=== PATIENT | male | born 1990 | race Caucasian/White ===

== ENCOUNTER 2017-12-10 17:30 | Outpatient (RCR) | payer OTHER, SELFPAY ==
--- NOTE | 2017-09-04 08:53 | HP.PTEVAL_ITS ---
Patient's Visit Information NURIS COONEY is a 27 year old M referred to Physical Therapy by DO VANNA Johns with a diagnosis of LOW BACK PAIN. Date of Evaluation: 09/04/17 Physical Therapist: Tushar Vitale PT, - Visit Plan Frequency: 1-2x /Week Duration: 4 Weeks Plan: posture ex's ,meckezie ex's ,manual therapy ,DLS,MODALITIES - Subjective Subjective: This 27 y/o male presents to physical therapy with low back pain with radicular symptoms. Intially,injuried low back with lateral shift in May 2016. Patient had MRI showed HNP.Patient had PT whiched helped. Most recently on hunting trip and camping noticed pain in lumbar pain. Location of symptoms right side with hamstrings symptoms. Denies parathesia/tingling. Coughing/ sneezing -. Symptoms worse with sitting,driving ,bending ,lifting. Symptoms affect sleeping right side. Symptoms better with walking. SOCIAL: . VOCATION: [place] [employer] - Pain Right Back Pain Intensity (Out of 10): 6 Pain Intensity Range: 10 Right Lower Extremity Pain Intensity (Out of 10): 6 Pain Intensity Range: 10 Comment: hams - Objective POSTURE: reduce lordosis. NEURO: denies pararthesia/tingling,reflexes L3-4,L4-5 ,L5-S1 1/3. GAIT: normal yimi reciprocal pattern. PALAPTION: unremarkable. SYMMTRIES: align. MMT: quads/hams 5/5,hip 4/5,ankle 5/5. LUMBAR ROM: flexion mod loss,extension min/mod loss,side glides min loss. FLEXABLITY: hams min tight - Special Tests L/S Slump test left side: Negative L/S Slump test right side: Negative L/S Left Straight Leg Raise: Negative L/S Right Straight Leg Raise: Negative Lumbar Standing: Flexion - Mechanical Response: No effect Lumbar Standing: Flexion - Symptoms During Testing: Increases Lumbar Standing: Flexion - Symptoms After Testing: Worse Lumbar Standing: Extension - Mechanical Response: No effect Lumbar Standing: Extension - Symptoms During Testing: Decreases Lumbar Standing: Extension - Symptoms After Testing: Better Lumbar Standing: Right Side Glides - Mechanical Response: No effect Lumbar Standing: Right Side [place] - Symptoms During Testing: Increases Lumbar Standing: Right Side [place] - Symptoms After Testing: No worse Lumbar Standing: Left Side [place] - Mechanical Response: No effect Lumbar Standing: Left Side [place] - Symptoms During Testing: No effect Lumbar Standing: Left Side [place] - Symptoms After Testing: No effect Lumbar Lying: Flexion - Mechanical Response: No effect Lumbar Lying: Flexion - Symptoms During Testing: Increases Lumbar Lying: Flexion - Symptoms After Testing: Worse Lumbar Lying: Extension - Mechanical Response: Increases motion Lumbar Lying: Extension - Symptoms During Testing: Increases Lumbar Lying: Extension - Symptoms After Testing: Better - Goals Goal 1:: Independant with HEP Goal Time Frame: 4-6 Weeks Goal 2:: Independant with posture/body mechanics Goal Time Frame: 4-6 Weeks Goal 3:: Decrease lumbar pain and radicular symptoms by 75% or greater to improve function. Goal Time Frame: 4-6 Weeks Goal 4:: Patient improve lumbar ROM to WNL for function of recovery Goal Time Frame: 4-6 Weeks Goal 5:: Patient bve d/c to prophalaxis Goal Time Frame: 4-6 Weeks - Rehabilitation Potential Physical Therapy Diagnosis: This patient has lumbar derrangemnt with HNP mechanical response with increase extension. blocked with extension,postive reponse with toñito ex's and posture correction. Rehabilitation Potential: Good - Anticipated Interventions Patient/Client Instruction: Educate patient on: Condition, Plan of Care For the Purpose of:: To decrease pain, To increase ROM, To improve nutrient delivery to tissue, To increase oxygenation perfusion, To improve muscle performance and motor function, To improve ability to perform ADL's, To increase tolerance to activity/condition/position, To improve ability of physical actions for home/community/work/leisure, To improve health of tissue, To decrease soft tissue restriction, To increase flexibility/ROM, To improve ability to perform tasks related to life management Therapeutic Exercise to Include: Strength training, Body mechanics, Postural training, Flexibilty training, Dynamic Lumbar Stabilization, Toñito Exercises For the Purpose of:: To decrease pain, To improve ability to perform ADL's, To increase tolerance to activity/condition/position, To improve performance and independence with ADL's, To improve ability of physical actions for home/ community/work/leisure, To improve health of tissue, To decrease soft tissue restriction, To increase flexibility/ROM, To improve ability to perform tasks related to life management Manual Therapy Techniques to Include: Mobilization For the Purpose of:: To decrease pain, To increase ROM, To improve nutrient delivery to tissue, To increase oxygenation perfusion, To improve health of tissue, To decrease soft tissue restriction, To increase flexibility/ROM TENS: Yes IF ES: Yes Cryotherapy (ice pack, ice massage): Yes Thermo therapy (hot pack): Yes Ultrasound (thermal/non thermal): Yes For the Purpose of:: To decrease pain, To improve nutrient delivery to tissue, To increase oxygenation perfusion, To improve health of tissue, To decrease soft tissue restriction Thank you for the opportunity to evaluate your patient. For Medicare and Medicare HMO plans, please review the plan of care and approve it. It will need to be FAXED BACK to us at [phone] for Medicare purposes. Please let me know if there are questions or concerns regarding this plan of care. Physician Signature: Date:
--- NOTE | 2018-02-22 15:50 | HP.PTDCNRP_ITS ---
HP - Discharge Summary (1) - Patient Information NURIS COONEY was seen in my office for initial evaluation on 09/04/17. The following Plan of Care was established for this patient: Initial Frequency: 1-2x /Week Initial Duration: 4 Weeks - Anticipated Interventions Patient/Client Instruction: Educate patient on: Condition, Plan of Care For the Purpose of:: To decrease pain, To increase ROM, To improve nutrient delivery to tissue, To increase oxygenation perfusion, To improve muscle performance and motor function, To improve ability to perform ADL's, To increase tolerance to activity/condition/position, To improve ability of physical actions for home/community/work/leisure, To improve health of tissue, To decrease soft tissue restriction, To increase flexibility/ROM, To improve ability to perform tasks related to life management Therapeutic Exercise to Include: Strength training, Body mechanics, Postural training, Flexibilty training, Dynamic Lumbar Stabilization, Margie Exercises For the Purpose of:: To decrease pain, To improve ability to perform ADL's, To increase tolerance to activity/condition/position, To improve performance and independence with ADL's, To improve ability of physical actions for home/ community/work/leisure, To improve health of tissue, To decrease soft tissue restriction, To increase flexibility/ROM, To improve ability to perform tasks related to life management Manual Therapy Techniques to Include: Mobilization For the Purpose of:: To decrease pain, To increase ROM, To improve nutrient delivery to tissue, To increase oxygenation perfusion, To improve health of tissue, To decrease soft tissue restriction, To increase flexibility/ROM TENS: Yes IF ES: Yes Cryotherapy (ice pack, ice massage): Yes Thermo therapy (hot pack): Yes Ultrasound (thermal/non thermal): Yes For the Purpose of:: To decrease pain, To improve nutrient delivery to tissue, To increase oxygenation perfusion, To improve health of tissue, To decrease soft tissue restriction This patient was last seen in our office 12/10/17. Pertinent comments regarding their Physical therapy will appear below: This patient seen for PT for lumbar radiculopathy . Patient did well with mckenzies and DLS PROGRAM .Patient has no pain,full lumbar ROM for function of recovey. Thus is d/c At this point I will be discontinuing this patient from physical therapy. I would be happy to see this patient again in the future if found appropriate by the physician. Thank you! Tushar Vitale, PT,
== END 2017-12-10 19:00 | disposition home or self-care (01) ==
LOC: PT 17:30
PROVIDERS: Family Provider Family Medicine; PCP Family Medicine; Visit Provider Orthopaedic Surgery
DX: M54.5 Low back pain (principal)
CPT/HCPCS: 97014; 97035; 97110; 97162; 97530; G0283

== ENCOUNTER 2018-04-19 14:00 | Outpatient (RCR) | payer OTHER, SELFPAY ==
--- NOTE | 2018-02-26 17:02 | HP.PTEVAL_ITS ---
Patient's Visit Information NURIS COONEY is a 27 year old M referred to Physical Therapy by TALA Lane with a diagnosis of LOW BACK PAIN UNSPECIFIED BACK PAIN WITH CHRONICITY SCIATICA. Date of Evaluation: 02/26/18 Physical Therapist: Tushar Vitale, PT, - Visit Plan Frequency: 1-2x /Week Duration: 4 Weeks Plan: PRORESSION OF SHANNON EX'S WITH PROGRESSION OF FORCES,DLS ,POSTIRAL EX'S, MODALITIES FOR PAIN CONRTOL - Subjective Subjective: This 27 y/o male presents to physical therapy with lumbar pain with radicular symptoms.Patient has h/o lumbar pain many years with h/o of HNP and pars fx 2008 playing football . Patient in past has had MRI . Patient has had shift deformity. Patient has h/o prior PT. Patient woke up yesterday morning waking up had alot of pain . Symtoms symtrically worse on left with radiculars symptoms occassionally lower legs.Symptoms worse with bending,lifting ,sitting. Symptoms some better with walking standing. Coughing/sneezing +.Bowel/bladder-. Patient has no parathesia/tingling. Patient low back pain affect QOL.. 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 SOCIAL : single - Pain Bilateral Back Pain Intensity (Out of 10): 7 Pain Intensity Range: 10 Bilateral Lower Extremity Pain Intensity (Out of 10): 0 Pain Intensity Range: 10 - Objective POSTURE: mild foward posture. GAIT: ambulates with reciprocal pattern slight mild foward posture. PALAPTION: tender L-S region. NEURO: denies parathesia/ tingling,reflexes 1/3 L3-4,L4-5,L5-S1. MMT: 5/5 quads/hams/hip/ankle 5/5. LUMBAR ROM: flexion mod loss ,extension mod loss,side glides min loss. FLEXABLITY : hams mod loss. SYMMTRIES: align - Special Tests L/S Slump test left side: Positive L/S Slump test right side: Positive L/S Left Straight Leg Raise: Positive L/S Right Straight Leg Raise: Negative Lumbar Standing: Flexion - Mechanical Response: No effect Lumbar Standing: Flexion - Symptoms During Testing: Increases Lumbar Standing: Flexion - Symptoms After Testing: Worse Lumbar Standing: Extension - Mechanical Response: No effect Lumbar Standing: Extension - Symptoms During Testing: Increases Lumbar Standing: Extension - Symptoms After Testing: No worse Lumbar Lying: Flexion - Mechanical Response: No effect Lumbar Lying: Flexion - Symptoms During Testing: Increases Lumbar Lying: Flexion - Symptoms After Testing: Worse Lumbar Lying: Extension - Mechanical Response: Increases motion Lumbar Lying: Extension - Symptoms During Testing: Decreases Lumbar Lying: Extension - Symptoms After Testing: Better - Goals Goal 1:: Independant with HEP Goal Time Frame: 4-6 Weeks Goal 2:: Independant with posture /body mechanics manage back pain. Goal Time Frame: 4-6 Weeks Goal 3:: Patient decrease lumbar pain by 75% or greater to improve function and job demands Goal Time Frame: 4-6 Weeks Goal 4:: Patient improve lumbar ROM for function of recovery Goal Time Frame: 4-6 Weeks Goal 5:: Patient to be d/c to prophalaxis Goal Time Frame: 4-6 Weeks Goal 6:: Patient to be able to perform ADL'S and job demands with no pain. Goal Time Frame: 4-6 Weeks - Rehabilitation Potential Physical Therapy Diagnosis: Patient has derrangemnent below knee posteral lateral due to h/o HNP with loss of ROM ,strength ,decrease gait,postural deficits thus benifit from skilled PPT. Rehabilitation Potential: Good - Anticipated Interventions Patient/Client Instruction: Educate patient on: Condition, Plan of Care For the Purpose of:: To decrease pain, To increase ROM, To improve nutrient delivery to tissue, To increase oxygenation perfusion, To improve muscle performance and motor function, To increase tolerance to activity/condition/ position, To improve ability of physical actions for home/community/work/leisure , To improve health of tissue, To decrease soft tissue restriction, To increase flexibility/ROM, To improve ability to perform tasks related to life management Therapeutic Exercise to Include: Strength training, Postural training, Flexibilty training, Dynamic Lumbar Stabilization, Shannon Exercises For the Purpose of:: To decrease pain, To increase oxygenation perfusion, To improve muscle performance and motor function, To increase tolerance to activity /condition/position, To improve ability of physical actions for home/community/ work/leisure, To improve health of tissue, To decrease soft tissue restriction, To increase flexibility/ROM, To improve ability to perform tasks related to life management Manual Therapy Techniques to Include: Mobilization Comment: LUMBAR For the Purpose of:: To decrease pain, To increase ROM, To improve muscle performance and motor function, To increase tolerance to activity/condition/ position, To improve ability of physical actions for home/community/work/leisure , To improve health of tissue, To decrease soft tissue restriction, To increase flexibility/ROM, To improve ability to perform tasks related to life management TENS: Yes IF ES: Yes Cryotherapy (ice pack, ice massage): Yes Thermo therapy (hot pack): Yes Ultrasound (thermal/non thermal): Yes For the Purpose of:: To decrease pain, To increase ROM, To improve health of tissue, To decrease soft tissue restriction Thank you for the opportunity to evaluate your patient. For Medicare and Medicare HMO plans, please review the plan of care and approve it. It will need to be FAXED BACK to us at [phone] for Medicare purposes. Please let me know if there are questions or concerns regarding this plan of care. Physician Signature: Date:
--- NOTE | 2018-07-31 14:07 | HP.PTDCNRP_ITS ---
HP - Discharge Summary (1) - Patient Information NURIS COONEY was seen in my office for initial evaluation on 02/26/18. The following Plan of Care was established for this patient: Initial Frequency: 1-2x /Week Initial Duration: 4 Weeks - Anticipated Interventions Patient/Client Instruction: Educate patient on: Condition, Plan of Care For the Purpose of:: To decrease pain, To increase ROM, To improve nutrient de livery to tissue, To increase oxygenation perfusion, To improve muscle performance and motor function, To increase tolerance to activity/condition/position, To improve ability of physical actions for home/community/work/leisure, To improve health of tissue, To decrease soft tissue restriction, To increase flexibility/ROM, To improve ability to perform tasks related to life management Therapeutic Exercise to Include: Strength training, Postural training, Flexibilty training, Dynamic Lumbar Stabilization, Effie Exercises For the Purpose of:: To decrease pain, To increase oxygenation perfusion, To improve muscle performance and motor function, To increase tolerance to activity/condition/position, To improve ability of physical actions for h ome/community/work/leisure, To improve health of tissue, To decrease soft tissue restriction, To increase flexibility/ROM, To improve ability to perform tasks related to life management Manual Therapy Techniques to Include: Mobilization Comment: LUMBAR For the Purpose of:: To decrease pain, To increase ROM, To improve muscle performance and motor function, To increase tolerance to activity/condition/position, To improve ability of physical actions for home/community/work/leisure, To improve health of tissue, To decrease soft tissue restriction, To increase flexibility/ROM, To improve ability to perform tasks related to life management TENS: Yes IF ES: Yes Cryotherapy (ice pack, ice massage): Yes Thermo therapy (hot pack): Yes Ultrasound (thermal/non thermal): Yes For the Purpose of:: To decrease pain, To increase ROM, To improve health of tissue, To decrease soft tissue restriction This patient was last seen in our office 04/19/18. Pertinent comments regarding their Physical therapy will appear below: This patient seen for PT for low back pain with PT tx focusing on Effie ex's,DLS,postural ex ,manual therapy and modalities,thus is d/c. At this point I will be discontinuing this patient from physical therapy. I would be happy to see this patient again in the future if found appropriate by the physician. Thank you! Tushar Vitale, PT, Cert MDT, OCS
== END 2018-04-19 19:00 | disposition home or self-care (01) ==
LOC: PT 14:00
PROVIDERS: Family Provider Family Medicine; PCP Family Medicine; Visit Provider Nurse Practitioner Family
DX: M54.5 Low back pain (principal)
CPT/HCPCS: 97014; 97035; 97110; 97162; G0283

== ENCOUNTER 2019-04-30 17:00 | Outpatient (RCR) | payer OTHER, SELFPAY ==
--- NOTE | 2019-03-31 19:57 | HP.PTEVAL_ITS ---
Patient's Visit Information NURIS COONEY is a 28 year old M referred to Physical Therapy by Carlos Kovacs III, MD with a diagnosis of RIGHT SCIATICA. Date of Evaluation: 03/31/19 Physical Therapist: Tushar Vitale, PT, Cert MDT, OCS - Visit Plan Frequency: 1-2x /Week Duration: 4 Weeks Plan: PT INTERVENTIONS SHANNON EX'S CORRECT SHIFT PROGRESS TO DLS ABD/BACK,. MODALTIES - Subjective Findings: This 28 y/o male presents to physical therapy with right sciatica . Patient had stiffness in lumbar then next next Sunday had shift deformity . Symptoms increase left buttuck hamstrind to calf . Aggraveting factors sol ding,sitting,driving lifting,standing and walking. Coughing/sneezing -. C/O parathesia/tingling left leg. Bowel/bladder-. Patient pain affects QOL and job demands. SOCIAL: . 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 GAIT: right lateral shift deformity antalgic gait. NEURO: c/o parathesia /tingling left leg ,reflexes L3-4,L4-5,L5-S1. MMT: quads/hams/hip 4/5,ankle 5/5. LUMBAR ROM: flexion mos loss,extension severe /mod loss,side glides mod rigght mod loss,left severe loss. SYMMTRIES:align - Special Tests L/S Slump test left side: Positive L/S Slump test right side: Negative L/S Left Straight Leg Raise: Positive L/S Right Straight Leg Raise: Negative Lumbar Standing: Flexion - Mechanical Response: No effect Lumbar Standing: Flexion - Symptoms During Testing: Increases Lumbar Standing: Flexion - Symptoms After Testing: Worse Lumbar Standing: Extension - Mechanical Response: No effect Lumbar Standing: Extension - Symptoms During Testing: Increases Lumbar Standing: Extension - Symptoms After Testing: Worse Lumbar Standing: Right Side Glides - Mechanical Response: No effect Lumbar Standing: Right Side [place] - Symptoms During Testing: Increases Lumbar Standing: Right Side [place] - Symptoms After Testing: Worse Lumbar Standing: Left Side [place] - Mechanical Response: No effect Lumbar Standing: Left Side [place] - Symptoms During Testing: Increases Lumbar Standing: Left Side [place] - Symptoms After Testing: Worse Lumbar Lying: Flexion - Mechanical Response: No effect Lumbar Lying: Flexion - Symptoms During Testing: Increases Lumbar Lying: Flexion - Symptoms After Testing: Worse Lumbar Lying: Extension - Symptoms During Testing: Peripheralizing Lumbar Lying: Extension - Symptoms After Testing: Worse Comments:: hips to right shit with REIL decrease symptoms - Goals Goal 1:: Independant with HEP Goal Time Frame: 4-6 Weeks Goal 2:: Independant with posture/body mechanics Goal Time Frame: 4-6 Weeks Goal 3:: Patient decrease lumbar pain and radicular symptoms by 70% > to improve function. Goal Time Frame: 4-6 Weeks Goal 4:: Patient to correct shift deformity to improve gait Goal Time Frame: 4-6 Weeks Goal 5:: Patient to improve lumbar ROM for function of recovery Goal Time Frame: 4-6 Weeks - Rehabilitation Potential Physical Therapy Diagnosis: This patient has right lateral shift deformity with symptoms radiating left leg has impaired with poor lumbar ROM ,shift deformity ,unable to return for flexion of recovery affects ADLS' and job demands . Rehabilitation Potential: Good - Anticipated Interventions Patient/Client Instruction: Educate patient on: Condition, Plan of Care For the Purpose of:: To decrease pain, To improve nutrient delivery to tissue, To improve muscle performance and motor function, To increase tolerance to activity/condition/position, To improve performance and independence with ADL's, To improve ability of physical actions for home/community/work/leisure, To improve health of tissue, To decrease soft tissue restriction, To increase flexibility/ROM, To improve ability to perform tasks related to life management Therapeutic Exercise to Include: Strength training, Postural training, Flexibilty training, Dynamic Lumbar Stabilization, Shannon Exercises For the Purpose of:: To decrease pain, To increase ROM, To improve muscle performance and motor function, To improve ability to perform ADL's, To increase tolerance to activity/condition/position, To improve ability of physical actions for home/community/work/leisure, To improve health of tissue, To decrease soft tissue restriction, To increase flexibility/ROM, To improve ability to perform tasks related to life management TENS: Yes IF ES: Yes Cryotherapy (ice pack, ice massage): Yes Thermo therapy (hot pack): Yes Ultrasound (thermal/non thermal): Yes For the Purpose of:: To decrease pain, To increase ROM, To improve nutrient delivery to tissue, To increase oxygenation perfusion, To increase tolerance to activity/condition/position, To improve ability of physical actions for home/community/work/leisure, To improve health of tissue, To decrease soft tissue restriction Thank you for the opportunity to evaluate your patient. For Medicare and Medicare HMO plans, please review the plan of care and approve it. It will need to be FAXED BACK to us at [phone] for Medicare purposes. For Medicare only, by signing this I certify the plan of care. Please let me know if there are questions or concerns regarding this plan of care. Physician Signature: Date:
--- NOTE | 2019-08-08 12:44 | HP.PT.NRP ---
HP - Discharge Summary (1) - Patient Information NURIS COONEY was seen in my office for initial evaluation on 03/31/19. The following Plan of Care was established for this patient: Initial Frequency: 1-2x /Week Initial Duration: 4 Weeks - Anticipated Interventions Patient/Client Instruction: Educate patient on: Condition, Plan of Care For the Purpose of:: To decrease pain, To improve nutrient delivery to tissue, To improve muscle performance and motor function, To increase tolerance to activity/condition/position, To improve performance and independence with ADL's, To improve ability of physical actions for home/community/work/leisure, To improve health of tissue, To decrease soft tissue restriction, To increase flexibility/ROM, To improve ability to perform tasks related to life management Therapeutic Exercise to Include: Strength training, Postural training, Flexibilty training, Dynamic Lumbar Stabilization, Toñito Exercises For the Purpose of:: To decrease pain, To increase ROM, To improve muscle performance and motor function, To improve ability to perform ADL's, To increase tolerance to activity/condition/position, To improve ability of physical actions for home/community/work/leisure, To improve health of tissue, To decrease soft tissue restriction, To increase flexibility/ROM, To improve ability to perform tasks related to life management TENS: Yes IF ES: Yes Cryotherapy (ice pack, ice massage): Yes Thermo therapy (hot pack): Yes Ultrasound (thermal/non thermal): Yes For the Purpose of:: To decrease pain, To increase ROM, To improve nutrient delivery to tissue, To increase oxygenation perfusion, To increase tolerance to activity/condition/position, To improve ability of physical actions for home/community/work/leisure, To improve health of tissue, To decrease soft tissue restriction This patient was last seen in our office 04/30/19. Pertinent comments regarding their Physical therapy will appear below: Patient seen for PT for lumbar radiculopathy for toñito ex's,DLS,moadlities , Patient doing well return to function of recovey ,no pain thus d/c. At this point I will be discontinuing this patient from physical therapy. I would be happy to see this patient again in the future if found appropriate by the physician. Thank you! Tushar Vitale, PT, Cert MDT, OCS
== END 2019-04-30 19:00 | disposition home or self-care (01) ==
LOC: PT 17:00
PROVIDERS: Family Provider Family Medicine; PCP Family Medicine; Referring Provider Family Medicine; Visit Provider Family Medicine
DX: M54.32 Sciatica, left side (principal)
CPT/HCPCS: 97014; 97035; 97110; 97161; G0283

== ENCOUNTER 2020-05-21 09:19 | Emergency (ER) | payer OTHER, SELFPAY ==
[2020-05-21 09:19] VITALS: BP 130/82; PULSE 87; RESP 17; TEMP 36.3; O2SAT 99; BMI 35.9
--- NOTE | 2020-05-21 09:48 | ED.VIS.INJ ---
History of Present Illness Chief Complaint: Other, Pain/Inj Informant: Patient Onset: Hours Mechanism/Context: Blunt Injury Quality of Pain: Dull Current Severity: Mild Maximum Severity: Moderate Worsened by: Initial trauma Associated Symptoms: Negative for: Inability to ambulate, Loss of consciousness, Amnesia Narrative: Patient is a 29-year-old male who presents after blunt facial trauma. He was working on a drive shaft. When he was removing the drive shaft the part broke and fell onto his face. He sustained a laceration upper lip right side. He does have facial swelling. He denies headache. Denies loss of conscious. He denies change in vision. He denies double vision. He denies malalignment of his teeth. Denies difficulty opening or closing his mouth. Denies neck pain. He denies paresthesia, anesthesia or motor weakness. He denies trauma to his teeth. Tetanus status is unknown. Tetanus Immunization: Unknown Prior similar symptoms: No Recent Illness/Hospitalization: No - Past Medical History (1) No significant past medical history Status: Acute Past Medical History - Allergies and Home Meds Allergies/Adverse Reactions: Allergies No Known Allergies Allergy (Verified 05/21/20 09:19) Primary Care Physician: Carlos Kovacs III, MD [Primary Care Provider] - Prior records reviewed: No Past Medical History: None Surgical History: noncontributory Lives: Alone Smoking Status: Current every day smoker Alcohol: Rare Drugs: None Review of Systems General: Denies: Chills, Fever, Malaise Eyes: Denies: Visual changes - bilaterally, Blurred Vision - bilaterally, Diplopia ENT: Denies: Bilateral ear pain, Rhinorrhea, Sore throat Gastrointestinal: Denies: Nausea, Vomiting Skin: Reports: Wounds. Denies: Rash Neurological: Denies: Headache, Weakness, Parasthesia, Numbness Hematologic: Denies: Easy bruising, Easy bleeding Allergy: Denies: Swelling of the mouth, Swelling of the tongue Physical Exam Vital Signs/Narrative: Vital Signs Temp Pulse Resp BP Pulse Ox 05/21/20 09:19 97.3 F L 87 17 130/82 H 99 Inital Vital Signs reviewed: Yes General: Well nourished, Well developed Head: Normocephalic, Trauma, Tenderness - Tenderness over the right side of the face. There is no pain to outpatient with tapping of the zygomatic arch, infraorbital rim or maxillary region. Eyes: Perrl, EOMI, - - No step-off infraorbital rim. There is no evidence of entrapment. There is no evidence of trauma to the upper eyelid. There is no subconjunctival hemorrhage.. Negative for: Pale conjunctiva, Scleral icterus ENT: TM's clear, No hemotympanum or drainage, No trauma, Nasal trauma - This [place] with no septal deviation hematoma.. Negative for: Hemotympanum, Otorrhea, Nasal septal hematoma Neck: Nontender Cardiovascular: Regular rate, Regular rhythm, No murmurs, Normal S1, Normal S2 Respiratory: No distress, CTA bilaterally Skin: Normal color, No rash, Trauma Neurological: Alert, Oriented x3, Cranial nerves II-XII grossly intact, Normal Strength, Normal Sensation, Normal Gait Psychological: Normal affect, Normal Mood Diagnostic/Tx/Re-eval - Medical Decision Making Patient has a laceration on the upper lip that involves the vermilion border. The lip was anesthetized by intraoral approach, infraorbital nerve block. 1% lidocaine, 4 cc Laceration No standard instances Length: 0.71 in Depth: Sub Q Shape: Involvement of vermilion border Prep: Sterile Conditions, Shjenny-Zak Laceration Repair: Nerve block - Infraorbital nerve block Irrigated (ml): 25 Number of Sutures/Michael: 7 Stitch Description: EthiKen ortiz, 6-0 Comment: First stitch was placed through the vermilion border. ED Disposition - Plan for ED Patient: Disposition: Home or Assisted Living Diagnosis: Lip laceration Instructions: ED Scar Tips to Minimize, ED Laceration Facial Sutr Tape Referrals: Carlos Kovacs III, MD [Primary Care Provider] - 5 Days for suture removal
[2020-05-21] MEDS: Diphth,Pertuss(Acell),Tet Vac 0.5 ML Vial IM (10:58)
== END 2020-05-21 12:22 | disposition home or self-care (01) ==
PROVIDERS: Emergency Provider Emergency Medicine; PCP Family Medicine
DX: S01.511A Laceration without foreign body of lip, initial encounter (principal); W20.8XXA Other cause of strike by thrown, projected or falling object, initial encounter; Y93.9 Activity, unspecified; Y92.9 Unspecified place or not applicable; Y99.9 Unspecified external cause status; Z23 Encounter for immunization; F17.200 Nicotine dependence, unspecified, uncomplicated
CPT/HCPCS: 12011; 90715; 99281

== ENCOUNTER 2020-08-24 15:30 | Outpatient (RCR) | payer BC, SELFPAY ==
--- NOTE | 2020-08-12 15:18 | HP.PTEVAL ---
Patient's Visit Information NURIS COONEY is a 30 year old M referred to Physical Therapy by Dr. Carlos Kovacs III, MD with a diagnosis of LBP. Date of Evaluation: 08/12/20 Physical Therapist: Mg García, DPT, OCS, CSCS - Visit Plan Frequency: 2-3x /Week Duration: 2-4 Weeks Plan: 2-3x/week for 2-4 weeks as needed for. toñito ext adn progression of forces as needed. DLS and body mechanics. IF ES and ice as needed for pain. HS stretching adn LB remodelling ex. - Subjective Back pain as is historicaly true. Goes into L leg at times. Life was good until waking up Sunday adn he rolled over and hard time moving in bed. Has gotten away form lifting and strengthening. Prior to Sunday it had been just intermittent gentle pain. Its been over a year since it was bad. Pain was 8/10. LB and L leg. Went chiropractor yesterday and he streched her. Having a hard time sleeping. Works in construction. DId not work today due to back. Having trouble picking up son last couple days. 56# 2 yo. Taking Tylenol. Dressing is OK but jeans are hard to geet up. - Pain LBP and L leg. Pain Intensity (Out of 10): 0 Pain Intensity Range: 0, 8 - Objective Walks into PT I and normal. Trasnfers sit adn bed normal. Steps reciprocal with no rail. Heel adn toe walk easily. Does lean slightly R sitting in chair but can correct to neutral posture without increased pain. 5/10 pain today while walking in L LB. Posture is kypohtic T/S and flat lumbar lordosis. - slump, - SLR. LB multisegmental AROM ext mod limited adn increased L LBP. No deviation, no shift. flexion is full and SB are fulla nd slight increased pain L. Some numbness subjective L thight but sensation otherwise WNL to gross light touch. reflexes patella adn achilles 2/3. Strength LE 4+/5 without myotomal abnormalities. + Lumbar compression and PA mobs cause some pain L45. - Goals Goal 1:: Full LB AROM without hesitation, limitation or pain increase. Goal Time Frame: 4-6 Weeks Goal 2:: Pt feel back pain abolished adn 100% back to activities Goal Time Frame: 4-6 Weeks Goal 3:: I approp EHP to minimize future problems Goal Time Frame: 4-6 Weeks Goal 4:: Sleep without interruption due to pain. Goal Time Frame: 4-6 Weeks Goal 5:: <5/10 oswestry Goal Time Frame: 2-4 Weeks - Rehabilitation Potential Physical Therapy Diagnosis: LBP likely derangement. Rehabilitation Potential: Fair - Anticipated Interventions Patient/Client Instruction: Educate patient on: Condition, Plan of Care For the Purpose of:: To decrease pain, To increase ROM Therapeutic Exercise to Include: Strength training, Body mechanics, Postural training, Flexibilty training, Passive ROM, Active ROM, Toñito Exercises For the Purpose of:: To decrease pain, To increase ROM, To improve nutrient delivery to tissue, To improve muscle performance and motor function, To improve ability of physical actions for home/community/work/leisure Manual Therapy Techniques to Include: Mobilization For the Purpose of:: To increase ROM IF ES: Yes Cryotherapy (ice pack, ice massage): Yes For the Purpose of:: To decrease pain Thank you for the opportunity to evaluate your patient. For Medicare and Medicare HMO plans, please review the plan of care and approve it. It will need to be FAXED BACK to us at [phone] for Medicare purposes. For Medicare only, by signing this I certify the plan of care. Please let me know if there are questions or concerns regarding this plan of care. Physician Signature: Date:
== END 2020-08-24 19:00 | disposition home or self-care (01) ==
LOC: PT 15:30
PROVIDERS: PCP Family Medicine; Referring Provider Family Medicine; Visit Provider Family Medicine
DX: M54.5 Low back pain (principal); G89.29 Other chronic pain
CPT/HCPCS: 97014; 97035; 97110; 97161; G0283

== ENCOUNTER 2024-03-09 15:57 | Emergency (ER) | payer OTHER, SELFPAY ==
[2024-03-09 15:59] VITALS: BP 123/106; PULSE 92; RESP 18; TEMP 36.4; O2SAT 98; BMI 38.0
--- NOTE | 2024-03-09 16:32 | EX.ED.DYSGE1 ---
HPI <TALA Appiah - Last Filed: 03/09/24 16:36> History of Present Illness Chief Complaint: Rash Narrative Narrative: Patient a 33-year-old male with no significant medical history presents to the emergency department with complaints of rash to bilateral arms, left side of face. 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 Patient states that the rash started on his hands and arms, it is itchy, he noticed it on his face today and he is concerned. Denies any fever or chills. Denies any difficulty breathing. Denies any rash to his oral airway, palms of his hands or feet. PFSH <TALA Appiah - Last Filed: 03/09/24 16:36> [facility] Medical History no medical history Home Medications ?Medication ?Instructions ?Recorded ?Last Taken ?Type multivitamin with folic acid 400 1 tab PO DAILY 12/04/13 Unknown History mcg tablet (Thera) prednisone 20 mg tablet 40 mg (2 x 20 mg) PO DAILY 10 days 03/09/24 Unknown Rx #20 tabs Allergy/AdvReac Type Severity Reaction Status Date / Time No Known Allergies Allergy Verified 03/09/24 15:58 Family History no significant family his Surgical History no surgical history Social History Smoking Status: Current every day smoker tobacco type: cigarettes ROS <TALA Appiah - Last Filed: 03/09/24 16:36> ROS ED ROS Narrative Constitutional: Negative for fever, chills, weight loss, weakness Eyes: Negative for vision loss, vision change, double vision ENT: Negative for any sore throat, ear pain, congestion Cardiovascular: Negative for any chest pain, tightness, palpitations Respiratory: Negative for any cough, sputum production, hemoptysis, dyspnea, dyspnea on exertion, orthopnea Gastrointestinal: Negative for any abdominal pain, nausea, vomiting, diarrhea, constipation, blood in stool, blood in vomit : Negative for any urinary frequency, dysuria, retention, blood in urine Muscle skeletal: Negative for any neck pain, back pain Neurological: Negative for any headache, syncope, dizziness Skin: Negative for any abrasions, lacerations. Positive for rash, itching to bilateral arms, face Psychiatric: Negative for any depression, anxiety, stress, suicidal ideation, homicidal ideation Hematologic: Negative for any excessive bruising, easy bleeding EXAM <TALA Appiah - Last Filed: 03/09/24 16:36> Physical Exam Narrative Exam Narrative: Vital signs reviewed. HEET: Head normocephalic atraumatic, TMs clear bilaterally. Posterior pharynx is clear, moist mucous membranes. Nares clear bilaterally. Negative for any oral airway swelling. Oral airway rash. Neck: Supple with no lymphadenopathy or tenderness. No signs of meningismus. Cardiac: Regular rate and rhythm no murmurs gallops or rubs, equal peripheral pulses bilaterally. Respiratory: Lungs clear to auscultation bilaterally. No chest tenderness. Abdomen: Soft, nontender, nondistended. No abdominal bruit or pulsatile masses. No hepatosplenomegaly Extremities: No peripheral edema, no signs of gross trauma or deformity. Active full range of motion of all extremities. Neuro: Cranial nerves II through XII intact, no focal neurological deficits. Skin: Clean dry and intact with no purpura, petechiae, vesicles or pustules. Patient does have a red raised rash that RN spots, couple together, slight linear pattern. This is consistent with more of a contact dermatitis, poison jackie. This is on his hands arms as well as the left side of his face. This is not concerning for any orbital inflammation or infection. Backs/flank: No CVA tenderness, no midline spinal tenderness, no deformity. Psych: Normal mood and affect. No SI, HI or acute psychosis. Const Vital Signs: 03/09/24 15:59 Temperature 97.5 F L Temperature Source Temporal Pulse Rate 92 Respiratory Rate 18 Blood Pressure 123/106 H Blood Pressure Mean 111 Pulse Ox 98 Oxygen Delivery Method Room Air Positive well nourished and well developed General Appearance ED: well developed <Dr. Rusty Lewis MD - Last Filed: 03/09/24 16:37> Physical Exam Const Vital Signs: 03/09/24 15:59 Temperature 97.5 F L Temperature Source Temporal Pulse Rate 92 Respiratory Rate 18 Blood Pressure 123/106 H Blood Pressure Mean 111 Pulse Ox 98 Oxygen Delivery Method Room Air MDM <TALA Appiah - Last Filed: 03/09/24 16:36> [facility] Treatment and Re-Evaluation :: Differential diagnosis includes however is not limited to: Cellulitis, zoster, contact dermatitis Patient appears to be in no obvious distress, patient's vital signs are stable. Patient presents to the emergency department with a rash to bilateral arms, left side of his face. Physical examination consistent with more of a contact dermatitis, poison jackie like presentation. Patient will be placed on prednisone. Given 60 mg here today, 40 mg a day for 10 days. He is instructed return for any worsening symptoms. All questions answered, stable for discharge. <Dr. Rusty Lewis MD - Last Filed: 03/09/24 16:37> [facility] Narrative Medical decision making narrative: I have personally performed a face to face assessment of the patient and have reviewed the PADMAJA Note. I performed a substantive portion of the visit including all aspects of the following. My mena findings include: History is 33-year-old male rash on his hands and forearms spreading that itches. He does for [employer] work. Denies any other complaints. Exam is [well-appearing 32-year-old male. Vital signs stable afebrile. Lungs clear. Heart regular rate and rhythm. Rash on his hands and forearms consistent with contact dermatitis probably poison jackie type of reaction. Otherwise exam unremarkable.] Medical Decision Making [treated for contact dermatitis. Prednisone here and a prescription of 40 mg the next 10 days as needed he may stop it early.] Other additions or changes: [None] Discharge Plan Triage Chief Complaint: Rash ED Midlevel Provider: Pato Guerra ED Provider: Rusty Lewis Dx/Rx/DC Orders Clinical Impression: Contact dermatitis, Poison jackie dermatitis Instructions: ED Contact Dermatitis, ED Poison Jackie Rash Prescriptions: New prednisone 20 mg tablet 40 mg PO DAILY 10 Days Qty: 20 0RF No Action multivitamin with folic acid [Thera] 1 TABLET tablet 1 tab PO DAILY Primary Care Provider: Care Physician,No Primary Referrals: Luna Grewal MD [Med Staff - [employer]] - Care Physician,No Primary [Primary Care Provider] - Activity Restrictions/Additional Instructions: Please follow-up, take the prednisone daily until finished. Print Language: [place] Disposition Disposition: Home, Self Care
[2024-03-09 16:37] VITALS: BP 123/106; PULSE 92; RESP 18; TEMP 36.4; O2SAT 98
== END 2024-03-09 16:39 | disposition home or self-care (01) ==
PROVIDERS: Emergency Provider Emergency Medicine; Visit Provider Emergency Medicine
DX: L24.7 Irritant contact dermatitis due to plants, except food (principal); F17.210 Nicotine dependence, cigarettes, uncomplicated
CPT/HCPCS: 99283

== ENCOUNTER 2025-04-08 17:29 | Emergency (ER) | payer OTHER, SELFPAY ==
[2025-04-08 17:29] VITALS: BP 123/81; PULSE 87; RESP 18; TEMP 36.8; O2SAT 99; BMI 36.2
--- NOTE | 2025-04-08 17:57 | RAD_ITS ---
PROCEDURE: LEFT TIBIA FIBULA 2 VIEWS 04/08/2025 REASON FOR EXAM: TRAUMA TECHNIQUE: Procedure Code: RADTF Modality: DX Procedure: TIBIA FIBULA 2 VIEWS Laterality: Left COMPARISON: None. FINDINGS: No acute fracture or dislocation. Alignment is anatomic. Preserved joint spaces. No aggressive osseous lesion. No marked soft tissue swelling or radiopaque foreign body. RAD/Tibia & Fibula 2 Views IMPRESSION: No acute fracture or dislocation. Reading Location: [facility]
--- NOTE | 2025-04-08 19:16 | US_ITS ---
PROCEDURE: LEFT LOWER EXTREMITY VENOUS DUPLEX IMAG/LIMITED/UNI 04/08/2025 REASON FOR EXAM: Left leg swelling/pain status post injury TECHNIQUE: Procedure Code: USVDUL Modality: US Procedure: VENOUS DUPLEX IMAG/LIMITED/UNI COMPARISON: None. FINDINGS: No intraluminal echogenicity to suggest the presence of a deep venous thrombosis. Appropriate respiratory variation, augmentation and venous compression is noted. Localized complex fluid collection in the area of injury/clinical concern in the left calf, measuring 5.7 x 5.6 x 2 cm, likely representing subcutaneous hematoma. No vascular flow on color Doppler. US/Venous Duplex Imag/Limited/Uni IMPRESSION: No evidence for DVT in the left lower extremity. Localized subcutaneous presumed hematoma in the left calf. Reading Location: [facility]
--- NOTE | 2025-04-08 19:21 | EX.ED.DYSGE1 ---
HPI History of Present Illness Chief Complaint: Lower Extremity Injury Narrative Narrative: Chief complaint and HPI: 34-year-old male with no significant past medical history presents for evaluation of calf pain after injury. Patient states a tree had fallen down a couple days ago. States that he was helping to move the tree logs when one rolled and pinned his left calf to another log. He states since the incident he has had pain, swelling, ecchymosis to the medial calf. Denies any numbness or tingling. Normal ambulation. Review of systems: See HPI Medications: As listed on the chart Allergies: As listed on the chart PFSH: Per chart Vital signs: As listed on the chart. Reviewed. Physical exam: Gen: A&O x3, NAD Head: Normocephalic, atraumatic Eyes: No sclera icterus, conjunctiva clear ENT: Moist mucous membranes CV: Regular rate Resp: Nonlabored respirations Musc: Full ROM of all the extremities including the left lower extremity, no deformity, swelling to the left calf compared to the right, there is an area of ecchymosis with skin abrasion to the medial lower left calf where patient is tender to palpation-the rest of the calf is nontender, compartments soft, knee nontender to palpation with full range of motion, ankle/foot nontender with full range of motion, Achilles intact without tenderness, DP/PT pulses +2 bilaterally, good capillary refill, sensation intact, strength plus 5 out of 5 in both lower extremities Skin: Warm, dry Neuro: Alert, oriented, grossly intact Psych: Cooperative, appropriate mood and affect PFS PFS Home Medications ?Medication ?Instructions ?Recorded ?Last Taken ?Type multivitamin with folic acid 400 1 tab PO DAILY 12/04/13 Unknown History mcg tablet (Thera) Allergy/AdvReac Type Severity Reaction Status Date / Time No Known Allergies Allergy Verified 04/08/25 17:31 Social History Smoking Status: Current every day smoker tobacco type: cigarettes EXAM Physical Exam Const Vital Signs: 04/08/25 17:29 Temperature 98.2 F Temperature Source Oral Pulse Rate 87 Respiratory Rate 18 Blood Pressure 123/81 H Blood Pressure Mean 95 Pulse Ox 99 Oxygen Delivery Method Room Air MDM MDM MDM Narrative Medical decision making narrative: 34-year-old male with no significant past medical history presents for evaluation of calf pain after injury. Patient states a tree had fallen down a couple days ago. States that he was helping to move the tree logs when one rolled and pinned his left calf to another log. He states since the incident he has had pain, swelling, ecchymosis to the medial calf. Denies any numbness or tingling. Normal ambulation. See physical exam findings. Differential diagnosis includes but is not limited to soft tissue contusion, fracture. Not clinically consistent with compartment syndrome. Patient had tib-fib/x-rays performed in triage per protocol. X-rays were performed by the time I saw the patient. I agree with the x-rays that were ordered. No fracture or dislocation. Radiology in agreement. Toradol given for pain will. Low suspicion for DVT however cannot rule it out with the swelling. Will obtain venous duplex ultrasound. Venous duplex ultrasound. Negative for DVT. Localized subcutaneous presumed hematoma on the left calf. This is consistent with patient's physical exam. Patient symptoms are secondary to contusion. Tylenol Motrin as needed for pain. Pain is improved with Toradol. Follow-up with PCP. Orthopedic if needed. He confirmed understand the plan. Was educated on RICE therapy. Patient stable to discharge home. Impression: 1. Left calf hematoma 2. Left calf contusion Radiography Diagnostic Testing: Clinical Impression(s) from Imaging Studies Tibia/Fibula X-Ray 04/08/25 17:57 IMPRESSION: No acute fracture or dislocation. Reading Location: [facility] Venous Duplex 04/08/25 19:16 IMPRESSION: No evidence for DVT in the left lower extremity. Localized subcutaneous presumed hematoma in the left calf. Reading Location: [facility] Discharge Plan Triage Chief Complaint: Lower Extremity Injury ED Provider: Santi Hernandez Dx/Rx/DC Orders Clinical Impression: Hematoma, Contusion of left calf Instructions: ED Contusion, Lower Extremity Prescriptions: No Action multivitamin with folic acid [Thera] 1 TABLET tablet 1 tab PO DAILY Primary Care Provider: Care Physician,No Primary Referrals: Pato Sosa MD [Med Staff - Active Staff, Family Practice] - 3-5 Days Goran Gray MD [Med Staff - Active Staff, Orthopedics] - 3-5 Days Care Physician,No Primary [Primary Care Provider, Medical] Activity Restrictions/Additional Instructions: Follow-up with your primary care physician. If you do not have a primary care physician follow with one provided above. Orthopedic surgery only if needed. Recommend Tylenol and ibuprofen as needed for pain. Received Toradol here in the emergency department, no ibuprofen for 8 hours. Recommend elevation and ice for swelling. Return back to the ED if symptoms change or worsen. Print Language: Kiswahili Disposition Disposition: Home, Self Care
[2025-04-08] MEDS: Ketorolac 30 MG/ML Syringe IM (19:25)
[2025-04-08 20:30] VITALS: BP 129/74; PULSE 79; RESP 18; TEMP 36.8; O2SAT 99
== END 2025-04-08 20:34 | disposition home or self-care (01) ==
PROVIDERS: Emergency Provider Surgery; Visit Provider Surgery
DX: S80.12XA Contusion of left lower leg, initial encounter (principal); F17.210 Nicotine dependence, cigarettes, uncomplicated; X58.XXXA Exposure to other specified factors, initial encounter
CPT/HCPCS: 73590; 93971; 96372; 99282